=== PATIENT | male | born 1950 | race Caucasian/White ===

== ENCOUNTER 2019-10-09 20:22 | Emergency (ER) | payer OTHER, SELFPAY ==
[2019-10-09 20:25] VITALS: BP 130/87; PULSE 86; RESP 16; TEMP 36.6; O2SAT 97; BMI 25.8
--- NOTE | 2019-10-09 21:30 | RAD_ITS ---
STUDY: X-RAY - RIGHT KNEE REASON FOR EXAM: Male, 69 years old. RIGHT KNEE PAIN TECHNIQUE: 4 view(s) of the knee. COMPARISON: None. FINDINGS: Normal visualized distal femur. Normal visualized proximal tibia and fibula. Normal proximal tibiofibular articulation. Normal medial femorotibial compartment. Normal lateral femorotibial compartment. Normal patellofemoral articulation. The soft tissue structures are unremarkable. RAD/Knee 4 or More Views IMPRESSION: Normal x-ray examination of the knee. Electronically Signed: Wesley Jerome MD at 21:44 EST Tel , Service support ,
--- NOTE | 2019-10-09 22:33 | US_ITS ---
STUDY: VENOUS DOPPLER ULTRASOUND - RIGHT LOWER EXTREMITY REASON FOR EXAM: Male, 69 years old. RT POSTERIOR KNEE PAIN FOR MONTHS GETTING WORSE CANT WALK TECHNIQUE: Ultrasound evaluation of the deep vein system to include balderas-scale imaging and compression was performed. Balderas-scale imaging and Doppler sonographic evaluation, including duplex spectral analysis and qualitative color flow sonography, was performed. COMPARISON: None. FINDINGS: No deep venous thrombosis is identified. All visualized veins demonstrate normal compressibility, augmentation and/or color flow. US/Venous Duplex Imag/Limited/Uni IMPRESSION: No DVT is identified. Electronically Signed: Wesley Jerome MD at 23:09 EST Tel , Service support ,
--- NOTE | 2019-10-09 23:15 | ED.VISSUMM ---
- ER Visit Summary Date of Service: 10/09/19 Chief Complaint: Knee pain History of Present Illness: The patient is a 69 M with right knee pain. The pain is primarily posterior, but he does have some medial pain. This has been ongoing issue for months. It has gotten to the point where he cannot bear weight on it. Denies any definite injuries. He takes aspirin. Denies any history of infected joints or gout. Denies any history of surgery to the knee. Denies hip or ankle pain. Denies back pain. Denies skin changes. Denies fever or systemic symptoms. Physical Examination: Afebrile and vital signs unremarkable. Inspection is unremarkable. Good range of motion. No laxity. Neurovascularly intact. Good strength and sensation. There is some posterior tenderness but otherwise unremarkable. No cords, etc. Test Results: X-rays unremarkable. Ultrasound unremarkable. Emergency Department Course and Treatment: Patient was treated with pain medicine. I believe this is myofascial pain. He may need other outpatient evaluation like MRI. I advised him to rest, ice, elevate. He was given a short course of pain medicine. Given crutches. He also has a walker at home. He feels safe going home. Patient will follow-up with his PCP or return for any new or worsening issues. Treatment Plan: As above Disposition: Discharge Impression: Right knee pain This note was generated with [employer] dictation software. It may contain incorrect words, spelling, and punctuation that were not noted in review of the chart prior to signing ED Disposition - Plan for ED Patient: [facility] [[facility] Care Provider] -
--- NOTE | 2019-10-09 23:16 | ED.DEP ---
ED Disposition - Plan for ED Patient: Instructions: Knee Sprain Prescriptions: Oxycodone HCl/Acetaminophen [Percocet 5/325] 1 tab PO Q6H PRN PRN 3 Days #12 tab PRN Reason: Pain Prescription Printed [facility]errals[facility] [Primary Care Provider] -
[2019-10-09] MEDS: HYDROcodone Bitartrate/Apap 5/325 Tablet PO (23:34)
--- NOTE | 2019-10-09 23:43 | ED.RN ---
PT REFUSED CRUTCHES STATING HE HAS A WALKER AT HOME
== END 2019-10-09 23:44 | disposition home or self-care (01) ==
PROVIDERS: Emergency Provider Emergency Medicine
DX: M25.561 Pain in right knee (principal); E11.9 Type 2 diabetes mellitus without complications; I10 Essential (primary) hypertension; Z79.82 Long term (current) use of aspirin; Z79.84 Long term (current) use of oral hypoglycemic drugs; Z79.899 Other long term (current) drug therapy
CPT/HCPCS: 73564; 93971; 99283

== ENCOUNTER 2020-08-28 06:58 | Day surgery (SDC) | payer OTHER, SELFPAY ==
[2020-07-27 14:36] VITALS: BMI 24.3
[2020-08-28] VITALS (9 sets, daily range): BP systolic 86–121; BP diastolic 57–75; PULSE 54–63; RESP 16–18; TEMP 36.2–36.3; O2SAT 93–98; BMI 25.0
--- NOTE | 2020-08-28 07:30 | PCM.HP.BLA ---
Problem List (1) History of colonic polyps Status: Acute History and Physical Date of Admission: 08/28/20 Intake Visit Reasons: C-Scope Chief Complaint: c-scope--hx polyps Manager Care Required: No Is patient in pain?: No Allergies No Known Allergies Allergy (Verified 07/27/20 14:38) Medications Aspirin [Aspir 81] 81 mg PO DAILY 10/09/19 [History Confirmed 07/27/20] Cholecalciferol (VIT D3) [Vitamin D] 1,000 unit PO DAILY 10/09/19 [History Confirmed 07/27/20] Metformin HCl 1,000 mg PO BID 10/09/19 [History Confirmed 07/27/20] Metoprolol Tartrate 25 mg PO BID 10/09/19 [History Confirmed 07/27/20] Simvastatin 40 mg PO DAILY 10/09/19 [History Confirmed 07/27/20] alogliptin 6.25 mg tablet 6.25 mg PO DAILY 07/27/20 [History Confirmed 07/27/20] losartan 25 mg tablet 25 mg PO DAILY 07/27/20 [History Confirmed 07/27/20] [facility] Medical History Lung nodule, solitary (Acute) Sleep apnea (Acute) History of prostate cancer (Acute) Diastolic dysfunction (Acute) HTN (hypertension) (Chronic) Diabetes (Acute) Urinary incontinence (Acute) Polycythemia (Acute) History of colonic polyps (Acute) Hyperlipidemia (Acute) Surgical History history of node dissection (Acute) History of colonoscopy (Acute ~2018) History of bilateral inguinal hernia repair (Acute) History of prostatectomy (Acute) Family History Sister Colon cancer Father Diabetes Heart disease Hypertension Mother Heart disease Hypertension CVA (cerebral vascular accident) Social History (Updated 07/27/20 @ 14:[address] Clyde Li MD) Smoking Status: Never smoker HPI HPI HPI: TAM CHAND, is a 70 M who presents to the office today for surgical consultation regarding colonoscopy. The patient usually gets his health care at the [facility]. However for endoscopic procedures she has to go to [place]. He has got permission to have it done locally. He has had 3 previous colonoscopies. On all occasions he has had multiple polyps identified. He is not had any personal history of colon cancer but he does have a sister who had colon cancer. Reports suggest that July 2015 he had multiple tubular adenomas removed. His most recent examination was July 2018. And ascending colon polyp tubular adenoma and a transverse colon polyp tubular adenoma and a descending colon polyp tubular adenoma and a sigmoid polyp tubular adenoma and a rectal polyp a tubulovillous adenoma and a hyperplastic polyp. The patient denies bright red blood per rectum or melena. His only current anticoagulant is aspirin. He denies myocardial infarction or stroke. He is on a statin medication simvastatin. He is a calderon. He is a of the [place] [employer]. 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 HPI HPI HPI: TAM CHAND, is a 70 M who presents to the office today for ROS General General: No weight change, appetite, fatigue, colon cancer, breast cancer or weakness HEENT HEENT: No difficulty swallowing, eye injury, eye surgery, swollen glands or hoarseness Endo Endocrine: Yes diabetes mellitus; no thyroid disease, thyroid cancer, Hair loss, heat intolerance or cold intolerance Musc Musculoskeletal: Yes back problems and arthritis; no rheumatoid arthritis, gout or joint pain Cardio Cardiovascular: Yes high blood pressure; no murmur, pacemaker, heart disease, atrial fibrillation, heart attack, heart stent, palpitations, shortness of breat with exertion or chest pain Psych Psychiatric: No depression, anxiety or hearing voices Resp Respiratory: No shortness of breath, No sleep apnea, Yes cough, No COPD, No asthma, No emphysema, No wheezing Gastro Gastrointestinal: No abdominal pain, No nausea or vomiting, No diarrhea, No constipation, No blood in stool, No acid reflux, No hemorrhoids, No ulcers, No gallbladder problem, No black,tarry stools [place] Hematologic: No blood thinners, No blood disorders, No bleeding, No anemia, No blood clots Neuro Neurologic: No weakness Exam Const General: cooperative, comfortable Nutritional Appearance: average body habitus Orientation: alert, awake [facility] Head: normal to inspection Eyes General: appearance normal, both eyes and all related structures Chest Other: Increased anterior posterior diameter Resp Effort & Inspection: normal respiratory effort Auscultation: clear to auscultation bilaterally Cardio Rhythm: regular rhythm Heart Sounds: no murmurs GI Palpation: soft, no hepatosplenomegaly Auscultation: normal bowel sounds Musc Cervical Spine: normal cervical lordosis Neuro General: alert, awake Extrem General: no calf tenderness Psych Affect: normal affect Assessment & Plan Problems 1. History of colonic polyps Z86.010 Plan I recommended the patient a colonoscopy with possible biopsy or polypectomy as indicated. Although he is asymptomatic he has had a history of multiple colonic polyps on each colonoscopy that he has had performed. He is aware of the technique, benefit, risk, alternatives. He has had an opportunity to ask and have questions answered. We will schedule procedure at his discretion. I plan to use monitored anesthesia care in case more complicated intervention is required. I appreciate the opportunity of assisting with his surgical care We will have him hold his aspirin for 1 week preprocedure. Copy: [facility] Clyde Li M.D., F.A.C.S. I have re-examined the patient. There are no clinical changes since date of exam. Procedure Criteria Procedure Type: Elective COVID Risk Discussion: The surgeon/proceduralist and patient have discussed in detail the risk of exposure to and/or potential harm posed by the COVID-19 virus with having a surgery/procedure at this time versus the risk of delaying the surgery/procedure. It is not possible to know either the risk of delaying the surgery or procedure or chance of getting an infection with perfect accuracy, but a joint decision was made between the patient and the surgeon/proceduralist to proceed at this time with the scheduled surgery/procedure as indicated on the consent form.
[2020-08-28 07:36] LABS: Bedside Glucose 135 mg/dL (70-110)
[2020-08-28] MEDS: Lactated Ringers 1,000 ML 100 ML IV (07:46)
--- NOTE | 2020-08-28 08:38 | OP.COLON_ITS ---
Patient Name: Ncik Keith Procedure Date: 08/28/2020 8:13 AM Date of : 1950 Age: 70 Procedure: Colonoscopy Indications: High risk colon cancer surveillance: Personal history of colonic polyps, Family history of colon cancer in a first-degree relative Providers: Clyde Li MD Referring MD: Ciara Arevalo Medicines: See the Anesthesia note for documentation of the administered medications Patient Profile: Last Colonoscopy: July 2018. Complications: No immediate complications. Procedure: Pre-Anesthesia Assessment: - Prior to the procedure, a History and Physical was performed, and patient medications and allergies were reviewed. The patient's tolerance of previous anesthesia was also reviewed. The risks and benefits of the procedure and the sedation options and risks were discussed with the patient. All questions were answered, and informed consent was obtained. Prior Anticoagulants: The patient has taken aspirin. ASA Grade Assessment: II - A patient with mild systemic disease. After reviewing the risks and benefits, the patient was deemed in satisfactory condition to undergo the procedure. After I obtained informed consent, the scope was passed under direct vision. Throughout the procedure, the patient's blood pressure, pulse, and oxygen saturations were monitored continuously. The colonoscope was introduced through the anus and advanced to the cecum, identified by appendiceal orifice and ileocecal valve. The colonoscopy was performed without difficulty. The patient tolerated the procedure well. The quality of the bowel preparation was good. The ileocecal valve and the appendiceal orifice were photographed. Scope In: 8:20:07 AM Scope Withdrawal Time 0 hours 7 minutes 28 seconds Scope Out: 8:32:29 AM Total Procedure Duration Time 0 hours 12 minutes 22 seconds Findings: The digital rectal exam findings include non-thrombosed external hemorrhoids, non-thrombosed internal hemorrhoids, internal hemorrhoids that prolapse with straining, but spontaneously regress to the resting position (Grade II) and surgically absent prostate. Scattered diverticula were found in the sigmoid colon and descending colon. The exam was otherwise without abnormality. Impression: - Non-thrombosed external hemorrhoids, non-thrombosed internal hemorrhoids, internal hemorrhoids that prolapse with straining, but spontaneously regress to the resting position (Grade II) and a surgically absent prostate found on digital rectal exam. - Diverticulosis in the sigmoid colon and in the descending colon. - The examination was otherwise normal. - No specimens collected. Recommendation: - Discharge patient to home. - Resume previous diet. - Continue present medications. - Repeat colonoscopy in 5 years for surveillance. Procedure Code(s): --- Professional --- 45294, Colonoscopy, flexible; diagnostic, including collection of specimen(s) by brushing or washing, when performed (separate procedure) Diagnosis Code(s): --- Professional --- Z86.010, Personal history of colonic polyps Z90.79, Acquired absence of other genital organ(s) K64.1, Second degree hemorrhoids K64.4, Residual hemorrhoidal skin tags Z80.0, Family history of malignant neoplasm of digestive organs K57.30, Diverticulosis of large intestine without perforation or abscess without bleeding CPT copyright 2017 [employer]. All rights reserved. The codes documented in this report are preliminary and upon channel lip stiffener insoles review may be revised to meet current compliance requirements. Clyde Li MD 08/28/2020 8:37:48 AM This report has been signed electronically. Number of Addenda: 0 Note Initiated On: 08/28/2020 8:13 AM
--- NOTE | 2020-08-28 08:38 | OP.CCLET_ITS ---
08/28/2020 Ciara Osorio Re : Colonoscopy procedure for Nick Keith Dear Mickey This procedure was performed on Friday, August 28, 2020. My impressions and recommendations are as follows: Impressions : - Non-thrombosed external hemorrhoids, non-thrombosed internal hemorrhoids, internal hemorrhoids that prolapse with straining, but spontaneously regress to the resting position (Grade II) and a surgically absent prostate found on digital rectal exam. - Diverticulosis in the sigmoid colon and in the descending colon. - The examination was otherwise normal. - No specimens collected. Recommendations : - Discharge patient to home. - Resume previous diet. - Continue present medications. - Repeat colonoscopy in 5 years for surveillance. My findings are described in the full procedure note, which is enclosed. If I can be of further assistance, please feel free to contact me at Doctor phone number(s): Work: . Sincerely, Clyde Li MD 08/28/2020 8:37:48 AM This report has been signed electronically.
== END 2020-08-28 09:34 | disposition home or self-care (01) ==
LOC: EN 06:59 → AC 06:59
PROVIDERS: PCP Internal Medicine; Referring Provider Internal Medicine; Visit Provider Surgery
PROC: 0DJD8ZZ Inspection of Lower Intestinal Tract, Via Natural or Artificial Opening Endoscopic (ICD-10-PCS; CPT 45378; principal; 2020-08-28 07:55)
DX: Z12.11 Encounter for screening for malignant neoplasm of colon (principal); K57.30 Diverticulosis of large intestine without perforation or abscess without bleeding; K64.4 Residual hemorrhoidal skin tags; K64.1 Second degree hemorrhoids; Z20.828 Contact with and (suspected) exposure to other viral communicable diseases; D75.1 Secondary polycythemia; E11.9 Type 2 diabetes mellitus without complications; J44.9 Chronic obstructive pulmonary disease, unspecified; I10 Essential (primary) hypertension; E78.5 Hyperlipidemia, unspecified; G47.30 Sleep apnea, unspecified; Z79.82 Long term (current) use of aspirin; Z79.84 Long term (current) use of oral hypoglycemic drugs; Z86.010 Personal history of colon polyps; Z87.19 Personal history of other diseases of the digestive system; Z85.46 Personal history of malignant neoplasm of prostate
CPT/HCPCS: 45378; 82962; 87426; C9803; J7120; J2405

== ENCOUNTER → 2022-11-02 | Outpatient (CLI) | payer OTHER, SELFPAY ==
--- NOTE | 2022-11-02 10:00 | RAD_ITS ---
STUDY: X-RAY - ESOPHAGUS (BARIUM SWALLOW) WITH FLUOROSCOPY REASON FOR EXAM: Male, 72 years old. DYSPHAGIA TECHNIQUE: 17 view(s) of the esophagus were obtained following swallowing of barium. FLUOROSCOPY TIME (if supplied): (1 minute and 2 seconds) minutes/seconds COMPARISON: None. FINDINGS: There is no demonstrated esophageal foreign body. Narrowing at the gastroesophageal junction. Normal gastroesophageal junction, without a demonstrated hiatal hernia. The patient ingested a 12 mm tablet at bedtime. The tablet at the gastroesophageal junction. There is atherosclerotic calcification of the aortic arch with tortuosity of the descending aorta. Normal visualized pulmonary parenchyma. Normal visualized osseous structures of the thorax. RAD/Esophagus Dual Contrast IMPRESSION: There is evidence of narrowing at the gastroesophageal junction with trapping of the 12 mm tablet of barium. Endoscopic correlation is recommended. Electronically Signed: Robb Tejada MD at 14:56 EST ,
== END | disposition home or self-care (01) ==
PROVIDERS: PCP Internal Medicine; Referring Provider Otolaryngology Otolaryngology/Facial Plastic Surgery; Visit Provider Otolaryngology Otolaryngology/Facial Plastic Surgery
DX: R13.10 Dysphagia, unspecified (principal)
CPT/HCPCS: 74221

== ENCOUNTER → 2023-01-13 | Outpatient (CLI) | payer OTHER, SELFPAY ==
--- NOTE | 2023-01-13 18:02 | STRESSREP ---
Stress Test Report Pharmacologic myocardial perfusion stress test. 72-year-old man with a history of shortness of breath Resting EKG demonstrates sinus rhythm with a rate of 65 bpm. Resting blood pressure is 124/80 mmHg. 0.4 mg of regadenoson was infused per usual protocol followed by rapid intravenous saline flush injection. Continuous EKG monitoring was performed. The maximum heart rate was 91 bpm which was 62% of max impacted heart rate the maximum workload was 1 metabolic equivalent. At rest there were no ST or T wave changes noted to suggest ischemia and at peak infusion nonspecific ST changes were noted which did not meet the criteria for ischemia. No clinical angina is noted. The final blood pressure was 116/70 mmHg. Myocardial perfusion protocol. 11.6 mCi of technetium 99m sestamibi was injected at rest. 0.4 mg of regadenoson was infused per usual protocol. At peak infusion 34 mCi of technetium 99m sestamibi was injected stress images were obtained stress and rest images were reconstructed and compared in the short axis vertical long and horizontal long axis. Gated images were also obtained. Perfusion SPECT analysis: Review of the stress images demonstrate normal uptake of tracer noted in all areas of the myocardium, the inferior wall has reduced perfusion though.. The resting images similar demonstrated normal uptake of tracer noted in all areas of the myocardium. The inferior wall has persistent reduced perfusion suggestive of either diaphragmatic attenuation or possibly previous infarct. No areas of reversibility are noted to suggest ischemia. Gated SPECT analysis: The gated ejection fraction is 70%. Conclusion: Normal pharmacologic myocardial perfusion stress test. Preserved ejection fraction. Previous inferior infarct cannot be completely excluded
== END | disposition home or self-care (01) ==
PROVIDERS: PCP Internal Medicine; Referring Provider Internal Medicine; Visit Provider Internal Medicine
DX: R06.02 Shortness of breath (principal)
CPT/HCPCS: 78452; 93017; A9500; A4216; J2785

== ENCOUNTER 2023-05-30 06:12 | Day surgery (SDC) | payer OTHER, SELFPAY ==
[2023-05-30] VITALS (7 sets, daily range): BP systolic 105–142; BP diastolic 68–76; PULSE 63–70; RESP 16–18; TEMP 36.2–36.9; O2SAT 92–98; BMI 25.0
--- NOTE | 2023-05-30 | GASB_PTH ---
PATIENT: Nick CHAND LOC: EN U#:[id number] AGE/SX: 72/M ROOM: RE05/30/[address]: Dr. Clyde Li MD : 1950 BED: DIS: 05/30/2023 SPEC #: [id number] RECD: 05/30/23 12:27 STATUS: MADELIN MICHELA #: [id number] ART: 05/30/23 00:[address]: Clyde Li DEPT: SURGICAL PATHOLOGY RECD BY: Alvin Caceres ENTERED: 05/30/23 12:27 SP TYPE: Gastric Bx OTHR DR: Dr. Ciara Arevalo MD Tissues: A - Duodenum, NOS B - Gastric mucous membrane C - Gastric mucous membrane Procedures: Special Stain Group II Surgery Specimen Level IV Alcian Blue/PAS (control) HEADER OPERATION: EGD, biopsy, dilatation PRE-OP DIAGNOSIS: Abnormal esophagram TISSUE SUBMITTED: A - Duodenum biopsy, B - Antrum biopsy for histo and H. pylori, C - EG junction biopsy MICROSCOPIC DIAGNOSIS A. Duodenum, biopsy: A fragment of duodenal mucosa, no pathologic diagnosis. B. Antrum, biopsy: Moderate gastritis. See microscopic description and comment. C. EG junction, biopsy: A fragment of gastroesophageal mucosa with chronic inflammation. Intestinal metaplasia (goblet cell metaplasia) not identified. See comment. SJ:rg 05/31/2023 COMMENT B. The results of immunohistochemistry for Helicobacter pylori will be reported separately ([id number]). C. Alcian blue/PAS stain with matched control is used in the evaluation of the specimen. MICROSCOPIC DESCRIPTION Slides are reviewed. B. The specimen shows fragments of gastric mucosa with chronic inflammatory cell infiltrates in the lamina propria consisting of lymphocytes and plasma cells, consistent with moderate chronic gastritis. GROSS DESCRIPTION A - Received in fixative is one container labeled with the patient's name and designated duodenum biopsy. The specimen consists of one irregular fragment of light colung[place] soft tissue that measures 0.4 x 0.2 x 0.1 cm. The specimen is totally submitted in one cassette. B - Received in fixative is one container labeled with the patient's name and designated antrum biopsy. The specimen consists of one irregular fragment of light colung[place] soft tissue that measures 0.4 x 0.3 x 0.1 cm. The specimen is totally submitted in one cassette. C - Received in fixative is one container labeled with the patient's name and designated EG junction biopsy. The specimen consists of one irregular fragment of light colung[place] soft tissue that measures 0.2 x 0.2 x 0.1 cm. The specimen is totally submitted in one cassette. / SJ:rg 05/30/2023 TC:3 CPT: 80771 x3, 28837
--- NOTE | 2023-05-30 06:29 | HP.PCM_ITS ---
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 Is patient in pain?: No Allergies penicillin G Allergy (Mild, Verified 05/08/23 09:24) PT UNSURE OF REACTION Medications aspirin 81 mg tablet,delayed release 81 mg PO DAILY 10/09/19 [History Confirmed 08/28/20] cholecalciferol (vitamin D3) 25 mcg (1,000 unit) tablet 1,000 unit PO DAILY 10/09/19 [History Confirmed 08/28/20] metformin 1,000 mg tablet 1,000 mg PO BID 10/09/19 [History Confirmed 08/28/20] metoprolol tartrate 25 mg tablet 25 mg PO BID 10/09/19 [History Confirmed 08/28/20] simvastatin 80 mg tablet 40 mg PO DAILY 10/09/19 [History Confirmed 08/28/20] alogliptin 6.25 mg tablet 6.25 mg PO DAILY 07/27/20 [History Confirmed 08/28/20] losartan 25 mg tablet 25 mg PO DAILY 07/27/20 [History Confirmed 08/28/20] PFS Medical History (Updated 05/08/23 @ 09:27 by Breanna Olivia) Cough Diabetes Diastolic dysfunction Dysphagia GERD (gastroesophageal reflux disease) History of colonic polyps History of prostate cancer HTN (hypertension) Hyperlipidemia Lung nodule, solitary Polycythemia Sleep apnea Urinary incontinence Surgical History (Updated 04/19/22 @ 00:19 by Mackenzie Martinez RN) History of bilateral inguinal hernia repair History of colonoscopy (~2018) history of node dissection History of prostatectomy Family History Sister Colon cancerFather Diabetes Heart disease HypertensionMother Heart disease Hypertension CVA (cerebral vascular accident) Social History (Updated 07/27/20 @ 14:[address] Clyde Li MD) Smoking Status: Never smoker HPI HPI HPI: 72-year-old gentleman is being referred by the [facility] for surgical consultation and treatment of upper esophageal gastric problems with a history of an esophageal ring dilated in 2011 and symptoms consistent with gastroesophageal reflux disease. A upper GI contrast study demonstrated narrowing at the EG junction with trapping of a 12 mm barium tablet. Endoscopy is recommended. Written copy of my surgical consult recommendations [facility] I have reviewed these images. There is a several centimeter segment of diffuse narrowing. States that he was placed on medication but he states he does not know what kind. He states that it is for reflux and that his symptoms did improve. Currently he is not having significant swallowing problems. He does take a low-dose aspirin. I have asked him to hold that for 1 week. ROS General General: No weight change, appetite, fatigue, colon cancer, breast cancer or weakness HEENT HEENT: Yes difficulty swallowing; No eye injury, eye surgery, swollen glands or hoarseness Endo Endocrine: Yes diabetes mellitus; No thyroid disease, thyroid cancer, Hair loss, heat intolerance or cold intolerance Skin Skin: No rash or changing moles Breast Breast: No left breast lump, right breast lump, nipple discharge, breast pain, abnormal mammogram, abnormal US or breast enlargement Musc Musculoskeletal: Yes back problems and arthritis; No rheumatoid arthritis, gout or joint pain Cardio Cardiovascular: Yes high blood pressure; No murmur, pacemaker, heart disease, atrial fibrillation, heart attack, heart stent, palpitations, shortness of breat with exertion or chest pain Psych Psychiatric: Yes anxiety; No depression or hearing voices Resp Respiratory: No shortness of breath, No sleep apnea, Yes cough, No COPD, No asthma, No emphysema and No wheezing Gastro Gastrointestinal: No abdominal pain, No nausea or vomiting, No diarrhea, No constipation, No blood in stool, Yes acid reflux, No hemorrhoids, No ulcers, No gallbladder problem and No black,tarry stools [place] Hematologic: Yes blood thinners, No blood disorders, No bleeding, No anemia and No blood clots Neuro Neurologic: No system reviewed and no additional complaints, except as docume nted, No as per HPI, No abnormal gait, No abnormal hearing, No abnormal movements, No abnormal speech, No behavioral changes, No burning sensations, No confusion, No convulsions, No disequilibrium, No dizziness, No localized weakness, No frequent falls, No headache(s), No lack of coordination, No loss of vision, No memory loss, No numbness, No other visual disturbances, No radicular pain, No restless legs, No sensory deficit, No syncope, No tingling, No tremor(s), No weakness and No other Exam Const General: cooperative, comfortable and no acute distress [facility] Head: normal to inspection Eyes General: appearance normal, both eyes and all related structures Neck Neck: normal visual inspection Chest Chest palpation & inspection: normal inspection of the chest Resp Effort & Inspection: normal respiratory effort Auscultation: clear to auscultation bilaterally Cardio Rate: regular rate Rhythm: regular rhythm GI Palpation: soft and no hepatosplenomegaly Auscultation: normal bowel sounds Musc Cervical Spine: normal cervical lordosis Skin General: no rashes or lesions noted Neuro General: patient alert, patient awake and patient oriented x3 Extrem General: no calf tenderness Psych Appearance: grossly normal Assessment and Plan Assessment and Plan (1) Abnormal esophagram: Status: Acute Plan: Fortunately the patient appears to be improved with medication which I presume to be a PPI although patient did not bring the medication with him today. I do recommend to him an esophagogastroduodenoscopy with possible biopsy or distal esophageal dilatation if indicated and I have described the technique, benefit, risk, alternatives. He has had an opportunity to ask and have questions answered. He will continue on his medications. We will schedule procedure at his discretion. I very much appreciate the kind opportunity was continued to assist with the surgical care. Copy: [facility] and Dr Ciara Li M.D., F.A.C.S I have examined the patient and the H&P has been reviewed. There are no clinical changes since date of exam. Clyde Li M.D., F.A.C.S.
[2023-05-30] MEDS: Lactated Ringers 1,000 ML 15 ML IV (06:42)
[2023-05-30 06:56] LABS: Bedside Glucose 151 mg/dL (74-106)
--- NOTE | 2023-05-30 07:30 | IMM_PTH ---
PATIENT: Nick CHAND LOC: EN U#:[id number] AGE/SX: 72/M ROOM: RE05/30/[address]: Dr. Clyde Li MD : 1950 BED: DIS: 05/30/2023 SPEC #: [id number] RECD: 05/30/23 13:31 STATUS: MADELIN REQ #: [id number] ART: 05/30/23 07:[address]: Clyde Li DEPT: IMMUNOHISTOCHEMISTRY RECD BY: Inna Nguyễn ENTERED: 05/30/23 13:31 SP TYPE: IMMUNO OTHR DR: Dr. Ciara Arevalo MD Tissues: B - Stomach, NOS Procedures: H Pylori (initial) PHYSICIAN & INSTITUTION [place] [id number] SPECIMEN INFORMATION: Tissue Source: B - Antrum Clinical Info: Abnormal esophagram Specimen Number: [id number] CPT code: 48498 METHODOLOGY: Deparaffinized sections of prefer/formalin-fixed tissue or PAP/DQ stained slides are incubated with monoclonal/polyclonal antibodies/oligonucleotide probes. Localization is made via biotin free immunoperoxidase method. Appropriate controls are performed and reacted as expected. Results on target cell population are indicated in the following table: RESULTS: ANTIBODY / CLONE RESULT Block B H Pylori (polyclonal) negative These tests were developed and their performance characteristics determined by [facility]. They may not have been cleared or approved by the U.S. Food and Drug Administration. The FDA has determined that such clearance or approval is not necessary. The above immunohistochemical/dualISH markers are ordered and reviewed by the Pathologist. INTERPRETATION: B. Antrum, biopsy: Negative for Helicobacter pylori organisms. SJ:xuan 05/31/2023
--- NOTE | 2023-05-30 08:00 | OP.EGD_ITS ---
Patient Name: Nick Keith Procedure Date: 05/30/2023 7:31 AM Date of : 1950 Age: 72 Procedure: Upper GI endoscopy Indications: Dysphagia Providers: Clyde Li MD Referring MD: Ciara Arevalo Medicines: See the Anesthesia note for documentation of the administered medications Complications: No immediate complications. Procedure: Pre-Anesthesia Assessment: - Prior to the procedure, a History and Physical was performed, and patient medications and allergies were reviewed. The patient's tolerance of previous anesthesia was also reviewed. The risks and benefits of the procedure and the sedation options and risks were discussed with the patient. All questions were answered, and informed consent was obtained. Prior Anticoagulants: The patient has taken no anticoagulant or antiplatelet agents. ASA Grade Assessment: II - A patient with mild systemic disease. After reviewing the risks and benefits, the patient was deemed in satisfactory condition to undergo the procedure. After obtaining informed consent, the endoscope was passed under direct vision. Throughout the procedure, the patient's blood pressure, pulse, and oxygen saturations were monitored continuously. The Endoscope was introduced through the mouth, and advanced to the second part of duodenum. The upper GI endoscopy was accomplished without difficulty. The patient tolerated the procedure well. Scope In: 7:38:05 AM Scope Out: 7:52:41 AM Total Procedure Duration Time 0 hours 14 minutes 36 seconds Findings: A severe Schatzki ring was found at the gastroesophageal junction. Biopsies were taken with a cold forceps for histology. A TTS dilator was passed through the scope. Dilation with an 18-19-20 mm balloon dilator was performed to 20 mm. The dilation site was examined following endoscope reinsertion and showed mild mucosal disruption. Estimated blood loss was minimal. The Z-line was irregular and was found 38 cm from the incisors. A medium-sized hiatal hernia was present. Diffuse moderately erythematous mucosa without bleeding was found in the gastric antrum. Biopsies were taken with a cold forceps for histology. The examined duodenum was normal. Biopsies were taken with a cold forceps for histology. Impression: - Severe Schatzki ring. Biopsied. Dilated to 20mm. - Z-line irregular, 38 cm from the incisors. - Medium-sized hiatal hernia. - Erythematous mucosa in the antrum. Biopsied. - Normal examined duodenum. Biopsied. Recommendation: - Discharge patient to home. - Resume previous diet. - Continue present medications. - Telephone my office for pathology results in 1 week. Follow-up await pathology. We will continue to instruct patient on appropriate medication utilization. Procedure Code(s): --- Professional --- 98186, Esophagogastroduodenoscopy, flexible, transoral; with transendoscopic balloon dilation of esophagus (less than 30 mm diameter) Diagnosis Code(s): --- Professional --- K22.2, Esophageal obstruction K22.89, Other specified disease of esophagus K44.9, Diaphragmatic hernia without obstruction or gangrene K31.89, Other diseases of stomach and duodenum R13.10, Dysphagia, unspecified CPT copyright 2021 [employer]. All rights reserved. The codes documented in this report are preliminary and upon heating engineer review may be revised to meet current compliance requirements. Clyde Li MD 05/30/2023 8:00:00 AM This report has been signed electronically. Number of Addenda: 0 Note Initiated On: 05/30/2023 7:31 AM
--- NOTE | 2023-05-30 08:00 | OP.CCLET_ITS ---
05/30/2023 [facility] Mickey Re : Upper GI endoscopy procedure for Nick Keith Dear Mickey This procedure was performed on Tuesday, May 30, 2023. My impressions and recommendations are as follows: Impressions : - Severe Schatzki ring. Biopsied. Dilated to 20mm. - Z-line irregular, 38 cm from the incisors. - Medium-sized hiatal hernia. - Erythematous mucosa in the antrum. Biopsied. - Normal examined duodenum. Biopsied. Recommendations : - Discharge patient to home. - Resume previous diet. - Continue present medications. - Telephone my office for pathology results in 1 week. Follow-up await pathology. We will continue to instruct patient on appropriate medication utilization. My findings are described in the full procedure note, which is enclosed. If I can be of further assistance, please feel free to contact me at Doctor phone number(s): Work: . Sincerely, Clyde Li MD 05/30/2023 8:00:00 AM This report has been signed electronically.
== END 2023-05-30 08:54 | disposition home or self-care (01) ==
LOC: EN 06:14 → AC 06:15
PROVIDERS: PCP Internal Medicine; Referring Provider Internal Medicine; Visit Provider Surgery
PROC: 0DJ08ZZ Inspection of Upper Intestinal Tract, Via Natural or Artificial Opening Endoscopic (ICD-10-PCS; CPT 43235; principal; 2023-05-30 07:25)
DX: K44.9 Diaphragmatic hernia without obstruction or gangrene (principal); J44.9 Chronic obstructive pulmonary disease, unspecified; E11.9 Type 2 diabetes mellitus without complications; Z79.84 Long term (current) use of oral hypoglycemic drugs; I10 Essential (primary) hypertension; K22.2 Esophageal obstruction; K29.70 Gastritis, unspecified, without bleeding; Z79.899 Other long term (current) drug therapy; Z79.82 Long term (current) use of aspirin; E78.00 Pure hypercholesterolemia, unspecified
CPT/HCPCS: 43249; 43239; 82962; 88305; 88313; 88342; J7120; J2405

== ENCOUNTER → 2025-01-09 | Outpatient (CLI) | payer OTHER, SELFPAY ==
--- NOTE | 2025-01-09 06:48 | ECHOD_ITS ---
Reason For Study Reason For Study: CAD Procedure This was a 2D Doppler, Color Flow transthoracic echocardiogram. Exam performed in department. Left Ventricle Normal LV size. Left ventricular systolic function is normal. The left ventricular ejection fraction is 60 %. No regional wall motion abnormalities noted. Right Ventricle Normal RV size. Normal systolic function. Atria Normal left atrium. Normal right atrium. Tricuspid Valve Normal tricuspid valve. Aortic Valve Trisinus/trileaflet aortic valve. Pulmonic Valve Normal pulmonic valve. Great Vessels Normal aortic root. Pericardium/Pleural No pericardial effusion. MMode/2D Measurements & Calculations LVIDd: 4.3 cm IVSd: 0.87 cm Ao root diam: 3.2 cm LVIDs: 2.5 cm LVPWd: 0.93 cm RVDd: 3.3 cm FS: 40.2 % LAV(MOD-bp): 40.0 ml LVAd ap4: 23.6 cm2 LVAd ap2: 24.3 cm2 LAV(MOD-bp) Indexed: 22.6 ml/m2 LVLd ap4: 7.9 cm LVLd ap2: 8.7 cm LAV(MOD-sp2): 35.8 ml EDV(MOD-sp4): 58.1 ml EDV(MOD-sp2): 57.3 ml LAV(MOD-sp4): 39.2 ml EDV(sp4-el): 59.6 ml EDV(sp2-el): 57.7 ml LVAs ap4: 13.6 cm2 LVAs ap2: 14.6 cm2 LVLs ap4: 6.7 cm LVLs ap2: 7.7 cm ESV(MOD-sp4): 24.3 ml ESV(MOD-sp2): 24.3 ml ESV(sp4-el): 23.6 ml ESV(sp2-el): 23.4 ml EF(MOD-sp4): 58.2 % EF(MOD-sp2): 57.5 % EF(sp4-el): 60.5 % SV(MOD-sp4): 33.8 ml SV(MOD-sp2): 33.0 ml SV(sp4-el): 36.0 ml SI(MOD-sp4): 19.1 ml/m2 SI(MOD-sp2): 18.6 ml/m2 LA A4 area: 16.2 cm2 LA dimension(2D): 3.6 cm RA A4 area: 14.5 cm2 TAPSE: 2.1 cm Time Measurements MV dec time: 0.20 sec Doppler Measurements & Calculations MV E max kartik: 63.8 cm/sec Lat Peak E' Kartik: 8.8 cm/sec Med Peak E' Kartik: 6.7 cm/sec MV A max kartik: 69.5 cm/sec E/E' lat: 7.3 E/E' med: 9.5 MV E/A: 0.92 Ao V2 max: 114.9 cm/sec LV V1 max: 90.7 cm/sec MV dec slope: 323.0 cm/sec2 Ao max P.3 mmHg LV V1 max P.3 mmHg Ao V2 mean: 75.0 cm/sec LV V1 mean P.8 mmHg Ao mean P.6 mmHg LV V1 mean: 61.5 cm/sec Ao V2 VTI: 23.1 cm LV V1 VTI: 20.5 cm AV (velocity ratio): 0.89 PA V2 max: 93.6 cm/sec ECHO/Echo Complete Interpretation Summary Normal LV size. Left ventricular systolic function is normal. The left ventricular ejection fraction is 60 %. Structurally normal valves. Ordering Physician: iNcholas Jordan Referring Physician: Ciara Arevalo Performed By: Noelle Sandy RDCS
--- NOTE | 2025-01-09 16:25 | STRESSREP ---
Stress Test Report Exercise myocardial perfusion stress test. 74-year-old man with a history of coronary artery disease Stress protocol: Resting EKG demonstrates normal sinus rhythm 70bpm resting blood pressure is 118/78 mmHg. The patient exercised according to the regular [place] protocol for a total duration of 4 minutes attaining a maximum heart rate of 130 bpm which was 90% of maximum predicted heart rate; the maximum workload was 6.9 metabolic equivalents. At rest there were no ST or T wave changes noted to suggest ischemia and at peak exercise upsloping ST changes only were noted which did not meet the criteria for ischemia. No clinical angina was noted the test was terminated due to the target heart rate being achieved/fatigue. The peak blood pressure was 158/70 mmHg. Rate-pressure product was 19,500. Myocardial perfusion protocol. 12.0 mCi of technetium 99m sestamibi was injected at rest. The patient exercised according to regular [place] protocol for total duration of 4 minutes and at peak exercise 36 point mCi of technetium 99m sestamibi was injected stress images were obtained stress and rest images were reconstructed in comparing the short axis vertical long and horizontal long axis. Gated images were also obtained. Perfusion SPECT analysis: Review of the stress images demonstrate normal uptake of tracer noted in all areas of the myocardium. The resting images similarly demonstrate normal uptake of tracer noted in all areas of the myocardium. No areas of reversibility are noted to suggest ischemia no previous infarct was noted. Gated SPECT analysis: The gated ejection fraction is 71. Conclusion: Normal exercise myocardial perfusion stress test at a moderate workload Preserved ejection fraction.
== END | disposition home or self-care (01) ==
LOC: CVS 06:45
PROVIDERS: PCP Internal Medicine; Referring Provider Internal Medicine Cardiovascular Disease; Visit Provider Internal Medicine Cardiovascular Disease
DX: I25.10 Atherosclerotic heart disease of native coronary artery without angina pectoris (principal)
CPT/HCPCS: 78452; 93017; 93306; A9500; A4216